=== PATIENT | female | born 1960 | race Caucasian/White ===

== ENCOUNTER 2021-06-20 14:50 | Emergency (ER) | payer OTHER, SELFPAY ==
[2021-06-20 14:51] VITALS: BP 173/89; PULSE 73; RESP 15; TEMP 36.6; O2SAT 100; BMI 20.5
--- NOTE | 2021-06-20 15:13 | RAD_ITS ---
STUDY: X-RAY - PELVIS AND RIGHT HIP REASON FOR EXAM: Female, 60 years old. pain TECHNIQUE: 3 views of the pelvis and hip. COMPARISON: None. FINDINGS: There is a non-specific bowel gas pattern. Normal visualized soft tissue structures. Normal bilateral iliac wings, sacroiliac joints and visualized sacrum. Normal bilateral superior and inferior pubic rami. Normal pubic symphysis. Normal bilateral ischial tuberosities. Normal visualized femoral head. Normal acetabulum. Normal hip joint. RAD/HIP, UNI W/ Pelvis 2-3 Views IMPRESSION: Normal x-ray examination of the pelvis and hip. Electronically Signed: Golden Guerra MD at 15:46 EDT ,
--- NOTE | 2021-06-20 15:14 | EDS_ITS ---
HPI History of Present Illness Chief Complaint: Lower Extremity Injury Informant: patient Onset/Context/Timing Onset: Weeks (1) Context: Gradual Onset Timing: Continuous Quality of Pain: Aching and - (sore) Location: right hip Current Severity: Moderate Maximum Severity: Moderate Worsened by: walking Relieved by: remaining still Associated Symptoms Associated Symptoms: Negative for Parasthesia, Weakness and Loss of Funtion Narrative Narrative: Patient complaining of right lateral hip/buttock pain that has been gradually worsening for the past week. She is limping on it because of the pain when she walks. She had pain in the same area on the left side about a year ago, she states her doctor put her on her prescription, she does not remember what it was, but it helped it and she is still on the prescription once daily. [facility] Medical History (Updated 06/20/21 @ 16:[address] Demian Owens MD) Arthritis HTN (hypertension) Home Medications prednisone 40 mg PO DAILY #10 tablet 06/20/21 [Rx Last Taken Unknown] tramadol 50 mg PO Q6H PRN 3 Days #12 tab 06/20/21 [Rx Last Taken Unknown] Allergy/AdvReac Type Severity Reaction Status Date / Time Penicillins [PCN] Allergy Hives Verified 06/20/21 14:52 Surgical History (Updated 06/20/21 @ 14:56 by Noel Cano) Hx of appendectomy Social History Smoking Status: Never smoker ROS ROS ED Constitutional Constitutional ED: Denies chills or fever(s) Musculoskeletal Musculoskeletal: Reports extremity pain; Denies neck pain Integumentary Denies Abrasions, rash or wounds Neurologic Neurologic: Denies paresthesias or weakness EXAM Physical Exam Const Vital Signs: 06/20/21 14:51 Temperature 98 F Temperature Source Temporal Pulse Rate 73 Respiratory Rate 15 Blood Pressure 173/89 H Blood Pressure Mean 117 Pulse Ox 100 Oxygen Delivery Method Room Air Positive well nourished and well developed General Appearance ED: well developed and NAD Neck full ROM and supple Back/Spine no CVA tenderness, normal ROM and normal to inspection Lumbar Spine / Lower Back: normal to inspection and lumbar ROM normal; Negative for lumbar spinal tenderness Extremity normal to inspection, full ROM, no calf tenderness and no pedal edema Extremity Narrative: No tenderness at the greater trochanter of the right hip, it is more in the sciatic notch area but she has negative straight leg raises bilaterally while sitting and normal symmetric reflexes. Some mild tenderness into the buttock/sacrum, but not exactly SI joint tenderness, no midline back tenderness. Neuro oriented x3, no focal motor deficits and no sensory deficits noted Sensorium / Orientation: alert Psych mental status grossly normal and thought process normal Skin no wounds Rashes: no rashes MDM MDM MDM Narrative Medical decision making narrative: Patient presents saying that she had hip arthritis on the left and was prescribed an unknown medication and now she has the problem on the right. However, the area she is describing pain is not the hip joint. She is not tender at the greater trochanteric bursa, it is more behind/posterior to the hip joint, suggesting it may be piriformis-related. I asked her if it was Mobic that she was on and she does not know. I gave her a dose of tramadol here obtain some x-rays which showed normal hip joints bilaterally, and I will prescribe her tramadol and a short 5-day course of prednisone to use until she can follow-up as an outpatient. Given orthopedics as well. Radiography Diagnostic Testing: Clinical Impression(s) from Imaging Studies Hip/Pelvis X-Ray 06/20/21 15:13 IMPRESSION: Normal x-ray examination of the pelvis and hip. Electronically Signed: Golden Guerra MD at 15:46 EDT , Discharge Plan Triage Chief Complaint: Lower Extremity Injury ED Provider: Demian Owens Dx/Rx/DC Orders Clinical Impression: Spasm of right piriformis muscle Instructions: ED Leg Spasm Prescriptions: New prednisone 20 MG tablet 40 mg PO DAILY Qty: 10 RF: 0 tramadol 50 MG tablet 50 mg PO Q6H PRN (Reason: pain) 3 Days Qty: 12 RF: 0 Primary Care Provider: Care Physician,No Primary Referrals: Pj Mijares DO [STAFF PHYSICIAN] - 1 Week if not improving (and/or your doctor (whoever treated your other side)) Care Physician,No Primary [Primary Care Provider] - Disposition Disposition: Home, Self Care
[2021-06-20] MEDS: traMADol 50 MG Tablet PO (15:21)
[2021-06-20] MEDS: Ketorolac 30 MG/ML Syringe IM (15:22)
[2021-06-20 17:09] VITALS: BP 128/78; PULSE 78; RESP 16; TEMP 37.1; O2SAT 98
== END 2021-06-20 17:10 | disposition home or self-care (01) ==
PROVIDERS: Emergency Provider Emergency Medicine; Visit Provider Emergency Medicine
DX: M62.838 Other muscle spasm (principal); I10 Essential (primary) hypertension; M19.90 Unspecified osteoarthritis, unspecified site
CPT/HCPCS: 73502; 96372; 99283

== ENCOUNTER → 2022-05-24 | Outpatient (CLI) | payer OTHER, SELFPAY | END | disposition home or self-care (01) | LOC: PSN 13:28 | PROVIDERS: Referring Provider Psychiatry & Neurology Psychiatry; Visit Provider Psychiatry & Neurology Psychiatry | DX: R94.31 Abnormal electrocardiogram [ECG] [EKG] (principal) | CPT/HCPCS: 93005 ==

== ENCOUNTER → 2022-06-29 | Outpatient (CLI) | payer OTHER, SELFPAY ==
--- NOTE | 2022-06-29 13:38 | EKG12_ITS ---
Test Reason : MEDICATION Blood Pressure : / mmHG Vent. Rate : 066 BPM Atrial Rate : 066 BPM P-R Int : 134 ms QRS Dur : 076 ms QT Int : 460 ms P-R-T Axes : 055 007 059 degrees QTc Int : 482 ms Normal sinus rhythm Normal ECG Confirmed by MICHEL JORDAN, JEFFREY ([id number]), sound editor MERARI STEPHENSON ([id number]) on 06/30/2022 8:32:52 AM Referred By: Dave Khan Confirmed By:JEFFREY PEARSON MD
== END | disposition home or self-care (01) ==
LOC: PSN 13:37
PROVIDERS: Referring Provider Psychiatry & Neurology Psychiatry; Visit Provider Psychiatry & Neurology Psychiatry
DX: R94.31 Abnormal electrocardiogram [ECG] [EKG] (principal)
CPT/HCPCS: 93005

== ENCOUNTER → 2022-07-14 | Outpatient (CLI) | payer OTHER, SELFPAY | END | disposition home or self-care (01) | LOC: PSN 13:46 | PROVIDERS: Referring Provider Psychiatry & Neurology Psychiatry; Visit Provider Psychiatry & Neurology Psychiatry | DX: R94.31 Abnormal electrocardiogram [ECG] [EKG] (principal); Z79.899 Other long term (current) drug therapy | CPT/HCPCS: 93005 ==